=== PATIENT | female | born 1990 | race Caucasian/White ===

== ENCOUNTER 2019-01-04 19:32 | Emergency (ER) | payer SELFPAY ==
--- NOTE | 2019-01-04 20:18 | EDM.PDOC ---
ED HPI GENERAL MEDICAL PROBLEM - General Chief Complaint: Skin Complaint Stated Complaint: SKIN CROHNS Time Seen by Provider: 01/04/19 19:34 Source of Information: Reports: Patient History Limitations: Reports: No Limitations - History of Present Illness INITIAL COMMENTS - FREE TEXT/NARRATIVE: HISTORY AND PHYSICAL: History of present illness: Patient is a 28-year-old female who presents to the emergency room with concerns of undertreated Crohn's disease. She states that she has no health insurance and no money and therefore has not been taking her medications for her Crohn's disease. She does get skin lesions associated with her Crohn's disease and has noticed one to her right buttocks, she developed one of her usual sores. She states yesterday she did cut into it hoping it would alleviate some of the pressure and pain. Patient states that she gets these areas frequently. She states she usually pops them and then they resolve and feel much better. She states after popping this one seems to have gotten worse and she rates her pain a 10 out of 10. Patient denies fever, chills, chest pain, shortness of breath or cough. Denies any abdominal pain, nausea, vomiting, change in bowel habits, blood in stool/ urine, difficulties urinating/burning with urination, or any chance of . She has been eating and drinking appropriately. Patient does have a history of Crohn's but denies any other health history. Review of systems: As per history of present illness and below otherwise all systems reviewed and negative. Past medical history: As per history of present illness and as reviewed below otherwise noncontributory. Surgical history: As per history of present illness and as reviewed below otherwise noncontributory. Social history: See social history for further information Family history: As per history of present illness and as reviewed below otherwise noncontributory. Physical exam: General: Well-developed and well-nourished 28-year-old female. Alert and oriented. She is tearful with obtaining her health history and moderately anxious. Nontoxic appearing and in no acute distress. Patient appears older than stated age. HEENT: Atraumatic, normocephalic, pupils equal and reactive bilaterally, negative for conjunctival pallor or scleral icterus, mucous membranes moist, TMs normal bilaterally, throat clear, neck supple, nontender, trachea midline. No drooling or trismus noted. No meningeal signs. No hot potato voice noted. Lungs: Clear to auscultation, breath sounds equal bilaterally, chest nontender. Heart: S1S2, regular rate and rhythm without overt murmur Abdomen: Soft, nondistended, nontender. Negative for masses or hepatosplenomegaly. Negative for costovertebral tenderness. Pelvis: Stable nontender. Genitourinary: Deferred. Rectal: See skin. Deferred. Skin: Patient does have a 3 cm abscess that was priorly incised with a surrounding area of erythema of approximately 5-6 cm on the left buttocks. This area does not extend near the rectum. Patient has several other 2 cm lesions or erythema and prior scarring over her generalized buttocks and superior thigh. He do not appear to be any drainable abscesses. Extremities: Atraumatic, moves all per self, negative for cords or calf pain. Neurovascular unremarkable. Neuro: Awake, alert, oriented. Cranial nerves II through XII unremarkable. Cerebellum unremarkable. Motor and sensory unremarkable throughout. Exam nonfocal. Notes: On exam, patient does appear to have had a prior abscess in which she incision and drained on her own. There is a surrounding area of cellulitis. There are several other smaller areas on her buttocks of cellulitis without abscess. Patient does have a slightly elevated white count today. Patient was given Rocephin here in the ED. We discussed starting outpatient oral antibiotics vs admission, she would like to do the oral antibiotics. patient states she is unable to afford any medications at this time. We are able to give her the medication prescription through our [employer] machine, via [facility]. Encouraged her to follow up closely with a primary care provider as this does need to be followed closely and monitored. Signs and symptoms that would prompt her to return to the emergency room were reviewed and discussed. Vital signs have improved. She continues to appear nontoxic and in no acute distress. Supportive care measures were reviewed and discussed. Voices understanding and is agreeable to plan of care. Denies any further questions or concerns at this time. Diagnostics: CBC, CMP, Blood Culture x 2, UA, urine drug screen Therapeutics: IV fluid, Ativan, Rocephin Prescription: Bactrim DS BID x 10 days [place] (#10) Impression: Cellulitis, buttocks History of Crohns Disease with skin lesions UTI Plan: 1. Take medication as prescribed. Keep the skin clean and dry. Continue to monitor for signs of improvement. 2. You can alternate ibuprofen and Tylenol as needed for pain or discomfort as directed. 3. Follow up with her primary care provider in the next 1-2 days as discussed. 4. Return to the ED as needed and as discussed. Definitive disposition and diagnosis as appropriate pending reevaluation and review of above. buttocks Pain Score (Numeric/FACES): 2 - Related Data Allergies Allergy/AdvReac Type Severity Reaction Status Date / Time No Known Allergies Allergy Verified 01/04/19 20:06 Home Meds: Home Meds . [No Known Home Meds] 01/04/19 [History] ED ROS GENERAL - Review of Systems Review Of Systems: ROS reveals no pertinent complaints other than HPI. ED EXAM, SKIN/RASH Exam: See Below (See dictation) Course - Vital Signs Last Recorded V/S: Last Vital Signs Temp 98.5 F 01/04/19 22:15 Pulse 112 H 01/04/19 22:15 Resp 18 01/04/19 22:15 BP 106/70 01/04/19 22:15 Pulse Ox 97 01/04/19 22:15 - Orders/Labs/Meds Orders: Active Orders 24 hr Category Date Time Status Communication Order [RC] STAT Care 01/04/19 21:22 Active CULTURE BLOOD [BC] Stat Lab 01/04/19 20:47 Results CULTURE BLOOD [BC] Stat Lab 01/04/19 21:00 Received CULTURE URINE [RM] Stat Lab 01/04/19 22:15 Received Blood Culture x2 Reflex Set [OM.PC] Stat Oth 01/04/19 20:29 Ordered Labs: Laboratory Tests 01/04/19 01/04/19 01/04/19 Range/Units 20:20 20:20 22:15 WBC 15.40 H (4.0-11.0) K/uL RBC 4.68 (4.30-5.90) M/uL Hgb 12.8 (12.0-16.0) g/dL Hct 38.4 (36.0-46.0) % MCV 82.1 (80.0-98.0) fL MCH 27.4 (27.0-32.0) pg MCHC 33.3 (31.0-37.0) g/dL RDW Std Deviation 42.7 (28.0-62.0) fl RDW Coeff of Maninder 14 (11.0-15.0) % Plt Count 428 H (150-400) K/uL MPV 9.80 (7.40-12.00) fL Neut % (Auto) 70.2 (48.0-80.0) % Lymph % (Auto) 21.8 (16.0-40.0) % [place] % (Auto) 6.6 (0.0-15.0) % Eos % (Auto) 1.1 (0.0-7.0) % Baso % (Auto) 0.3 (0.0-1.5) % Neut # (Auto) 10.8 H (1.4-5.7) K/uL Lymph # (Auto) 3.4 H (0.6-2.4) K/uL [place] # (Auto) 1.0 H (0.0-0.8) K/uL Eos # (Auto) 0.2 (0.0-0.7) K/uL Baso # (Auto) 0.1 (0.0-0.1) K/uL Nucleated RBC % 0.0 /100WBC Nucleated RBCs # 0 K/uL Sodium 138 (136-145) mmol/L Potassium 3.8 (3.5-5.1) mmol/L Chloride 100 (98-107) mmol/L Carbon Dioxide 23.8 (21.0-32.0) mmol/L BUN 12 (7.0-18.0) mg/dL Creatinine 0.8 (0.6-1.0) mg/dL Est Cr Clr Drug Dosing 99.91 mL/min Estimated GFR (MDRD) > 60.0 ml/min Glucose 104 (74-106) mg/dL Calcium 9.4 (8.5-10.1) mg/dL Total Bilirubin 0.6 (0.2-1.0) mg/dL AST 15 (15-37) IU/L ALT 13 L (14-63) IU/L Alkaline Phosphatase 97 (46-116) U/L Total Protein 9.3 H (6.4-8.2) g/dL Albumin 3.3 L (3.4-5.0) g/dL Globulin 6.0 H (2.6-4.0) g/dL Albumin/Globulin Ratio 0.6 L (0.9-1.6) Urine Color YELLOW Urine Appearance SLT CLOUDY Urine pH 6.5 (5.0-8.0) Ur Specific [place] 1.020 (1.001-1.035) Urine Protein TRACE H (NEGATIVE) mg/dL Urine Glucose (UA) NEGATIVE (NEGATIVE) mg/dL Urine Ketones TRACE H (NEGATIVE) mg/dL Urine Occult Blood MODERATE H (NEGATIVE) Urine Nitrite NEGATIVE (NEGATIVE) Urine Bilirubin NEGATIVE (NEGATIVE) Urine Urobilinogen 0.2 (<2.0) EU/dL Ur Leukocyte Esterase SMALL H (NEGATIVE) Urine RBC 4-7 (0-2/HPF) Urine WBC 5-8 (0-5/HPF) Ur Epithelial Cells MODERATE (NONE-FEW) Urine Bacteria FEW (NEGATIVE) Hyaline Casts 0-1 (0-2/LPF) Urine Mucus MODERATE (NONE-MOD) Urine Opiates Screen (NEGATIVE) Ur Oxycodone Screen (NEGATIVE) Urine Methadone Screen (NEGATIVE) Ur Barbiturates Screen (NEGATIVE) Ur Phencyclidine Scrn (NEGATIVE) Ur Amphetamine Screen (NEGATIVE) U Methamphetamines Scrn (NEGATIVE) U Benzodiazepines Scrn (NEGATIVE) U Cocaine Metab Screen (NEGATIVE) U Marijuana (THC) Screen (NEGATIVE) 01/04/19 Range/Units 22:15 WBC (4.0-11.0) K/uL RBC (4.30-5.90) M/uL Hgb (12.0-16.0) g/dL Hct (36.0-46.0) % MCV (80.0-98.0) fL MCH (27.0-32.0) pg MCHC (31.0-37.0) g/dL RDW Std Deviation (28.0-62.0) fl RDW Coeff of Maninder (11.0-15.0) % Plt Count (150-400) K/uL MPV (7.40-12.00) fL Neut % (Auto) (48.0-80.0) % Lymph % (Auto) (16.0-40.0) % [place] % (Auto) (0.0-15.0) % Eos % (Auto) (0.0-7.0) % Baso % (Auto) (0.0-1.5) % Neut # (Auto) (1.4-5.7) K/uL Lymph # (Auto) (0.6-2.4) K/uL [place] # (Auto) (0.0-0.8) K/uL Eos # (Auto) (0.0-0.7) K/uL Baso # (Auto) (0.0-0.1) K/uL Nucleated RBC % /100WBC Nucleated RBCs # K/uL Sodium (136-145) mmol/L Potassium (3.5-5.1) mmol/L Chloride (98-107) mmol/L Carbon Dioxide (21.0-32.0) mmol/L BUN (7.0-18.0) mg/dL Creatinine (0.6-1.0) mg/dL Est Cr Clr Drug Dosing mL/min Estimated GFR (MDRD) ml/min Glucose (74-106) mg/dL Calcium (8.5-10.1) mg/dL Total Bilirubin (0.2-1.0) mg/dL AST (15-37) IU/L ALT (14-63) IU/L Alkaline Phosphatase (46-116) U/L Total Protein (6.4-8.2) g/dL Albumin (3.4-5.0) g/dL Globulin (2.6-4.0) g/dL Albumin/Globulin Ratio (0.9-1.6) Urine Color Urine Appearance Urine pH (5.0-8.0) Ur Specific [place] (1.001-1.035) Urine Protein (NEGATIVE) mg/dL Urine Glucose (UA) (NEGATIVE) mg/dL Urine Ketones (NEGATIVE) mg/dL Urine Occult Blood (NEGATIVE) Urine Nitrite (NEGATIVE) Urine Bilirubin (NEGATIVE) Urine Urobilinogen (<2.0) EU/dL Ur Leukocyte Esterase (NEGATIVE) Urine RBC (0-2/HPF) Urine WBC (0-5/HPF) Ur Epithelial Cells (NONE-FEW) Urine Bacteria (NEGATIVE) Hyaline Casts (0-2/LPF) Urine Mucus (NONE-MOD) Urine Opiates Screen NEGATIVE (NEGATIVE) Ur Oxycodone Screen NEGATIVE (NEGATIVE) Urine Methadone Screen NEGATIVE (NEGATIVE) Ur Barbiturates Screen NEGATIVE (NEGATIVE) Ur Phencyclidine Scrn NEGATIVE (NEGATIVE) Ur Amphetamine Screen NEGATIVE (NEGATIVE) U Methamphetamines Scrn NEGATIVE (NEGATIVE) U Benzodiazepines Scrn NEGATIVE (NEGATIVE) U Cocaine Metab Screen NEGATIVE (NEGATIVE) U Marijuana (THC) Screen NEGATIVE (NEGATIVE) Meds: Medications Discontinued Medications Generic Name Dose Route Start Last Admin Trade Name Tong PRN Reason Stop Dose Admin Acetaminophen 1,000 mg 01/04/19 20:29 01/04/19 20:52 Tylenol Extra Strength PO 01/04/19 20:30 1,000 mg ONETIME ONE Administration Sodium Chloride 1,000 mls @ 999 mls/hr 01/04/19 20:19 01/04/19 20:35 Normal Saline IV 01/04/19 21:19 999 mls/hr STAT ONE Administration Ceftriaxone Sodium/Dextrose 1 50 mls @ 100 mls/hr 01/04/19 21:09 01/04/19 21: 34 gm/ Premix IV 01/04/19 21:38 100 mls/hr ONETIME ONE Administration Lorazepam 1 mg 01/04/19 20:37 01/04/19 21:07 Ativan IVPUSH 01/04/19 20:38 1 mg ONETIME ONE Administration Departure - Departure Time of Disposition: 22:30 Disposition: Home, Self-Care 01 Clinical Impression: History of Crohn's disease Cellulitis Qualifiers: Site of cellulitis: buttock Qualified Code(s): L03.317 - Cellulitis of buttock UTI (urinary tract infection) Qualifiers: Urinary tract infection type: site unspecified Hematuria presence: without hematuria Qualified Code(s): N39.0 - Urinary tract infection, site not specified - Discharge Information Instructions: Cellulitis, Adult, [id number] Referrals: PCP,None [Primary Care Provider] - Forms: ED Department Discharge Additional Instructions: The following information is given to patients seen in the emergency department who are being discharged to home. This information is to outline your options for follow-up care. We provide all patients seen in our emergency department with a follow-up referral. The need for follow-up, as well as the timing and circumstances, are variable depending upon the specifics of your emergency department visit. If you don't have a primary care physician on staff, we will provide you with a referral. We always advise you to contact your personal physician following an emergency department visit to inform them of the circumstance of the visit and for follow-up with them and/or the need for any referrals to a consulting specialist. The emergency department will also refer you to a specialist when appropriate. This referral assures that you have the opportunity for follow-up care with a specialist. All of these measure are taken in an effort to provide you with optimal care, which includes your follow-up. Under all circumstances we always encourage you to contact your private physician who remains a resource for coordinating your care. When calling for follow-up care, please make the office aware that this follow-up is from your recent emergency room visit. If for any reason you are refused follow-up, please contact the [facility] Emergency Department at and asked to speak to the emergency department charge nurse. [facility] [address] [place] [id number] [facility] [address] [place] [id number] 1. Take medication as prescribed. Keep the skin clean and dry. Continue to monitor for signs of improvement. 2. You can alternate ibuprofen and Tylenol as needed for pain or discomfort as directed. 3. Follow up with her primary care provider in the next 1-2 days as discussed. 4. Return to the ED as needed and as discussed. - My Orders Last 24 Hours: My Active Orders 01/04/19 20:29 Blood Culture x2 Reflex Set [OM.PC] Stat 01/04/19 20:47 CULTURE BLOOD [BC] Stat 01/04/19 21:00 CULTURE BLOOD [BC] Stat 01/04/19 21:22 Communication Order [RC] STAT 01/04/19 22:15 CULTURE URINE [RM] Stat - Assessment/Plan Last 24 Hours: My Active Orders 01/04/19 20:29 Blood Culture x2 Reflex Set [OM.PC] Stat 01/04/19 20:47 CULTURE BLOOD [BC] Stat 01/04/19 21:00 CULTURE BLOOD [BC] Stat 01/04/19 21:22 Communication Order [RC] STAT 01/04/19 22:15 CULTURE URINE [RM] Stat
[2019-01-04] MEDS ORDERED: Sodium Chloride 0.9% 1,000 ML IV ONE (20:19)
[2019-01-04] MEDS ORDERED: Acetaminophen 500 MG Tab PO ONE (20:29)
[2019-01-04] MEDS ORDERED: LORazepam 2 MG/ML SDV IVPUSH ONE (20:37)
[2019-01-04 21:00] LABS: CHLORIDE,CL 100 mmol/L (98-107); SODIUM,NA 138 mmol/L (136-145)
[2019-01-04] MEDS ORDERED: cefTRIAXone 1 GM in Premix Bag 1 BAG IV ONE (21:09)
== END 2019-01-04 22:15 | disposition home or self-care (01) ==
LOC: MW.ED 19:32
DX: L03.317 Cellulitis of buttock (principal); N39.0 Urinary tract infection, site not specified; K50.90 Crohn's disease, unspecified, without complications
CPT/HCPCS: 80053; 80305; 81001; 85025; 87040; 87086; 96361; 96365; 96375; 99283; A9270; J0696; J2060; J7040

== ENCOUNTER 2019-01-09 15:21 | Emergency (ER) | payer SELFPAY ==
--- NOTE | 2019-01-09 15:44 | EDM.PDOC ---
ED HPI GENERAL MEDICAL PROBLEM - General Chief Complaint: Skin Complaint Stated Complaint: SKIN CHROME INFECTED Time Seen by Provider: 01/09/19 15:26 Source of Information: Reports: Patient History Limitations: Reports: No Limitations - History of Present Illness INITIAL COMMENTS - FREE TEXT/NARRATIVE: History of present illness: []Patient has a history of Crohn's disease with multiple skin abscesses. She was seen here 5 days ago after opening an abscess at home with his scalpel herself. She was put on Bactrim and [place]. Patient returns stating that they "hole is bigger". She denies any fevers, chills, vomiting or diarrhea. Patient is currently on Bactrim. Review of systems: As per history of present illness and below otherwise all systems reviewed and negative. Past medical history: As per history of present illness and as reviewed below otherwise noncontributory. Surgical history: As per history of present illness and as reviewed below otherwise noncontributory. Social history: No reported history of drug or alcohol abuse. Family history: As per history of present illness and as reviewed below otherwise noncontributory. Physical exam: General: Well developed, well nourished in NAD HEENT: Atraumatic, normocephalic, pupils reactive, negative for conjunctival pallor or scleral icterus, mucous membranes moist, throat clear, neck supple, nontender, trachea midline. Lungs: Clear to auscultation, breath sounds equal bilaterally, chest nontender. Heart: S1S2, regular, negative for clicks, rubs, or JVD. Abdomen: NABS, Soft, nondistended, nontender. Negative for masses or hepatosplenomegaly. Negative for costovertebral tenderness. Pelvis: Stable nontender. Genitourinary: Deferred. Rectal: Buttock with multiple scars diffusely there is a left buttock wound that is open with granulation tissue visible. There is minimal and mild erythema and no swelling. Extremities: Atraumatic, negative for cords or calf pain. Neurovascular unremarkable. Neuro: Awake, alert, oriented. Cranial nerves II through XII unremarkable. Cerebellum unremarkable. Motor and sensory unremarkable throughout. Exam nonfocal. Skin:warm and dry Diagnostics: None Therapeutics: Dressing changed ED Course: Unremarkable, patient was upset that the wound was still open and that she was unable to get into a doctor right away. For the . Impression: Multiple skin abscesses Prescriptions: None Plan: Follow-up with general surgery and/or primary care Definitive disposition and diagnosis as appropriate pending reevaluation and review of above. Buttock Pain Score (Numeric/FACES): 10 - Related Data Allergies Allergy/AdvReac Type Severity Reaction Status Date / Time No Known Allergies Allergy Verified 01/09/19 15:38 Home Meds: Home Meds Acetaminophen/HYDROcodone [[place] 325-5 MG] 1 tab PO Q6H 01/09/19 [History] Sulfamethoxazole/Trimethoprim [Sulfamethoxazole-Tmp Ds Tablet] 1 each PO BID 07/22 [History] Past Medical History Gastrointestinal History: Reports: Other (See Below) Other Gastrointestinal History: crohns Dermatologic History: Reports: Other (See Below) Other Dermatologic History: skins crohns - Infectious Disease History Infectious Disease History: Reports: MRSA - Past Surgical History GI Surgical History: Reports: None Dermatological Surgical History: Reports: Other (See Below) Social & Family History - Family History Family Medical History: Noncontributory - Caffeine Use Caffeine Use: Reports: Other Caffeine Use Comment: charmaine ED ROS GENERAL - Review of Systems Review Of Systems: ROS reveals no pertinent complaints other than HPI. ED EXAM, SKIN/RASH Exam: See Below (See history of present illness) Course - Vital Signs Last Recorded V/S: Last Vital Signs Temp 99.1 F 01/09/19 15:41 Pulse 92 01/09/19 15:41 Resp 16 01/09/19 15:41 BP 92/57 L 01/09/19 15:41 Pulse Ox 98 01/09/19 15:41 Departure - Departure Time of Disposition: 15:56 Disposition: Home, Self-Care 01 Condition: Good Clinical Impression: Encounter for medical screening examination, Wound check, abscess - Discharge Information *PRESCRIPTION DRUG MONITORING PROGRAM REVIEWED*: No *COPY OF PRESCRIPTION DRUG MONITORING REPORT IN PATIENT JACI: No Referrals: PCP,None [Primary Care Provider] - Forms: ED Department Discharge Additional Instructions: The following information is given to patients seen in the emergency department who are being discharged to home. This information is to outline your options for follow-up care. We provide all patients seen in our emergency department with a follow-up referral. The need for follow-up, as well as the timing and circumstances, are variable depending upon the specifics of your emergency department visit. If you don't have a primary care physician on staff, we will provide you with a referral. We always advise you to contact your personal physician following an emergency department visit to inform them of the circumstance of the visit and for follow-up with them and/or the need for any referrals to a consulting specialist. The emergency department will also refer you to a specialist when appropriate. This referral assures that you have the opportunity for follow-up care with a specialist. All of these measure are taken in an effort to provide you with optimal care, which includes your follow-up. Under all circumstances we always encourage you to contact your private physician who remains a resource for coordinating your care. When calling for follow-up care, please make the office aware that this follow-up is from your recent emergency room visit. If for any reason you are refused follow-up, please contact the [facility] Emergency Department at and asked to speak to the emergency department charge nurse. Keep wound clean, frequent sitz bath, follow-up with primary care and/or general surgery [facility] - General Surgery Professional Building [address] [place] [address], [address] [place] [address] [facility] [address] [place] [id number]
== END 2019-01-09 16:03 | disposition home or self-care (01) ==
LOC: MW.ED 15:21
DX: L02.31 Cutaneous abscess of buttock (principal)
CPT/HCPCS: 99282; 99283

== ENCOUNTER 2019-05-29 02:59 | Emergency (ER) | payer BC, OTHER ==
--- NOTE | 2019-05-29 03:06 | EDM.PDOC ---
<Perez Cannon J - Last Filed: 05/29/19 06:57> ED HPI GENERAL MEDICAL PROBLEM - General Stated Complaint: VOMITING, PASSING OUT, COLD, CLAMMY Time Seen by Provider: 05/29/19 03:01 - History of Present Illness INITIAL COMMENTS - FREE TEXT/NARRATIVE: HISTORY AND PHYSICAL: History of present illness: Patient 29-year-old female history Crohn's disease presents with a concern of nausea and vomiting/diarrhea she denies fever chills chest pain shortness breath or other concern is been no trauma she states her Crohn's disease has been very stable. Review of systems: As per history of present illness and below otherwise all systems reviewed and negative. Past medical history: As per history of present illness and as reviewed below otherwise noncontributory. Surgical history: As per history of present illness and as reviewed below otherwise noncontributory. Social history: No reported history of drug or alcohol abuse. Family history: As per history of present illness and as reviewed below otherwise noncontributory. Physical exam: HEENT: Atraumatic, normocephalic, pupils reactive, negative for conjunctival pallor or scleral icterus, mucous membranes dry, throat clear, neck supple, nontender, trachea midline. Lungs: Clear to auscultation, breath sounds equal bilaterally, chest nontender. Heart: S1S2, regular, negative for clicks, rubs, or JVD. Abdomen: Soft, nondistended, nontender. Negative for masses or hepatosplenomegaly. Negative for costovertebral tenderness. Pelvis: Stable nontender. Genitourinary: Deferred. Rectal: Deferred. Extremities: Atraumatic, negative for cords or calf pain. Neurovascular unremarkable. Neuro: Awake, alert, oriented. Cranial nerves II through XII unremarkable. Cerebellum unremarkable. Motor and sensory unremarkable throughout. Exam nonfocal. Diagnostics: CBC CMP lipase UA UDS acute abdominal series with chest x-ray Therapeutics: Saline 1 L bolus Zofran 4 mg IV Impression: #1 vomiting/diarrhea #2 history of Crohn's disease #3 dehydration Definitive disposition and diagnosis as appropriate pending reevaluation and review of above. Abdomen Pain Score (Numeric/FACES): 3 - Related Data Allergies Allergy/AdvReac Type Severity Reaction Status Date / Time aspertane Allergy Vomiting Uncoded 05/29/19 03:06 Home Meds: Home Meds Certolizumab Pegol [Cimzia] 1 injection INJECT ASDIRECTED 05/29/19 [History] Past Medical History - Past Health History Medical/Surgical History: Denies Medical/Surgical History Gastrointestinal History: Reports: Other (See Below) Other Gastrointestinal History: crohns Dermatologic History: Reports: Other (See Below) Other Dermatologic History: skins crohns - Infectious Disease History Infectious Disease History: Reports: MRSA - Past Surgical History GI Surgical History: Reports: None Dermatological Surgical History: Reports: Other (See Below) Social & Family History - Family History Family Medical History: Noncontributory - Caffeine Use Caffeine Use: Reports: Other Caffeine Use Comment: charmaine ED ROS GENERAL - Review of Systems Review Of Systems: ROS reveals no pertinent complaints other than HPI. ED EXAM, GENERAL - Physical Exam Exam: See Below (See dictation) Course - Vital Signs Last Recorded V/S: Last Vital Signs Temp 96 F 05/29/19 03:00 Pulse 93 05/29/19 03:00 Resp 18 05/29/19 03:00 BP 102/61 05/29/19 03:00 Pulse Ox 98 05/29/19 03:00 - Orders/Labs/Meds Orders: Active Orders 24 hr Category Date Time Status CULTURE STOOL + CAMPY+SHIGATOX [RM] Stat Lab 05/29/19 03:45 Results OVA & PARASITES BY IMMUNOASSAY [MREF] Stat Lab 05/29/19 03:45 Received Sodium Chloride 0.9% [Normal Saline] 1,000 ml Med 05/29/19 03:15 Active IV ASDIRECTED Medication Orders Sodium Chloride (Normal Saline) 1,000 mls @ 999 mls/hr IV ASDIRECTED PÉREZ Last Admin: 05/29/19 03:22 Dose: 999 mls/hr Labs: Laboratory Tests 05/29/19 05/29/19 05/29/19 Range/Units 03:23 03:23 03:42 WBC 16.49 H (4.0-11.0) K/uL RBC 5.30 (4.30-5.90) M/uL Hgb 15.3 (12.0-16.0) g/dL Hct 45.4 (36.0-46.0) % MCV 85.7 (80.0-98.0) fL MCH 28.9 (27.0-32.0) pg MCHC 33.7 (31.0-37.0) g/dL RDW Std Deviation 44.0 (28.0-62.0) fl RDW Coeff of Maninder 14 (11.0-15.0) % Plt Count 328 (150-400) K/uL MPV 10.60 (7.40-12.00) fL Neut % (Auto) 84.2 H (48.0-80.0) % Lymph % (Auto) 6.2 L (16.0-40.0) % [place] % (Auto) 9.2 (0.0-15.0) % Eos % (Auto) 0.2 (0.0-7.0) % Baso % (Auto) 0.2 (0.0-1.5) % Neut # (Auto) 13.9 H (1.4-5.7) K/uL Lymph # (Auto) 1.0 (0.6-2.4) K/uL [place] # (Auto) 1.5 H (0.0-0.8) K/uL Eos # (Auto) 0.0 (0.0-0.7) K/uL Baso # (Auto) 0.0 (0.0-0.1) K/uL Nucleated RBC % 0.0 /100WBC Nucleated RBCs # 0 K/uL Sodium 138 (136-145) mmol/L Potassium 3.8 (3.5-5.1) mmol/L Chloride 100 (98-107) mmol/L Carbon Dioxide 21.5 (21.0-32.0) mmol/L BUN 34 H (7.0-18.0) mg/dL Creatinine 1.6 H (0.6-1.0) mg/dL Est Cr Clr Drug Dosing 48.57 mL/min Estimated GFR (MDRD) 38.1 ml/min Glucose 202 H (74-106) mg/dL Calcium 9.9 (8.5-10.1) mg/dL Total Bilirubin 0.4 (0.2-1.0) mg/dL AST 18 (15-37) IU/L ALT 20 (14-63) IU/L Alkaline Phosphatase 86 (46-116) U/L Total Protein 9.9 H (6.4-8.2) g/dL Albumin 4.5 (3.4-5.0) g/dL Globulin 5.4 H (2.6-4.0) g/dL Albumin/Globulin Ratio 0.8 L (0.9-1.6) Lipase 88 (73-393) U/L Urine Color YELLOW Urine Appearance SLT CLOUDY Urine pH 5.5 (5.0-8.0) Ur Specific [place] >= 1.030 (1.001-1.035) Urine Protein TRACE H (NEGATIVE) mg/dL Urine Glucose (UA) NEGATIVE (NEGATIVE) mg/dL Urine Ketones TRACE H (NEGATIVE) mg/dL Urine Occult Blood NEGATIVE (NEGATIVE) Urine Nitrite NEGATIVE (NEGATIVE) Urine Bilirubin MODERATE H (NEGATIVE) Urine Ictotest NEGATIVE Urine Urobilinogen 0.2 (<2.0) EU/dL Ur Leukocyte Esterase SMALL H (NEGATIVE) Urine RBC 0-1 (0-2/HPF) Urine WBC 1-2 (0-5/HPF) Ur Epithelial Cells RARE (NONE-FEW) Urine Bacteria RARE (NEGATIVE) Urine HCG, Qual (NEGATIVE) Urine Opiates Screen (NEGATIVE) Ur Oxycodone Screen (NEGATIVE) Urine Methadone Screen (NEGATIVE) Ur Barbiturates Screen (NEGATIVE) Ur Phencyclidine Scrn (NEGATIVE) Ur Amphetamine Screen (NEGATIVE) U Methamphetamines Scrn (NEGATIVE) U Benzodiazepines Scrn (NEGATIVE) U Cocaine Metab Screen (NEGATIVE) U Marijuana (THC) Screen (NEGATIVE) 05/29/19 05/29/19 Range/Units 03:42 03:42 WBC (4.0-11.0) K/uL RBC (4.30-5.90) M/uL Hgb (12.0-16.0) g/dL Hct (36.0-46.0) % MCV (80.0-98.0) fL MCH (27.0-32.0) pg MCHC (31.0-37.0) g/dL RDW Std Deviation (28.0-62.0) fl RDW Coeff of Maninder (11.0-15.0) % Plt Count (150-400) K/uL MPV (7.40-12.00) fL Neut % (Auto) (48.0-80.0) % Lymph % (Auto) (16.0-40.0) % [place] % (Auto) (0.0-15.0) % Eos % (Auto) (0.0-7.0) % Baso % (Auto) (0.0-1.5) % Neut # (Auto) (1.4-5.7) K/uL Lymph # (Auto) (0.6-2.4) K/uL [place] # (Auto) (0.0-0.8) K/uL Eos # (Auto) (0.0-0.7) K/uL Baso # (Auto) (0.0-0.1) K/uL Nucleated RBC % /100WBC Nucleated RBCs # K/uL Sodium (136-145) mmol/L Potassium (3.5-5.1) mmol/L Chloride (98-107) mmol/L Carbon Dioxide (21.0-32.0) mmol/L BUN (7.0-18.0) mg/dL Creatinine (0.6-1.0) mg/dL Est Cr Clr Drug Dosing mL/min Estimated GFR (MDRD) ml/min Glucose (74-106) mg/dL Calcium (8.5-10.1) mg/dL Total Bilirubin (0.2-1.0) mg/dL AST (15-37) IU/L ALT (14-63) IU/L Alkaline Phosphatase (46-116) U/L Total Protein (6.4-8.2) g/dL Albumin (3.4-5.0) g/dL Globulin (2.6-4.0) g/dL Albumin/Globulin Ratio (0.9-1.6) Lipase (73-393) U/L Urine Color Urine Appearance Urine pH (5.0-8.0) Ur Specific [place] (1.001-1.035) Urine Protein (NEGATIVE) mg/dL Urine Glucose (UA) (NEGATIVE) mg/dL Urine Ketones (NEGATIVE) mg/dL Urine Occult Blood (NEGATIVE) Urine Nitrite (NEGATIVE) Urine Bilirubin (NEGATIVE) Urine Ictotest Urine Urobilinogen (<2.0) EU/dL Ur Leukocyte Esterase (NEGATIVE) Urine RBC (0-2/HPF) Urine WBC (0-5/HPF) Ur Epithelial Cells (NONE-FEW) Urine Bacteria (NEGATIVE) Urine HCG, Qual NEGATIVE (NEGATIVE) Urine Opiates Screen NEGATIVE (NEGATIVE) Ur Oxycodone Screen NEGATIVE (NEGATIVE) Urine Methadone Screen NEGATIVE (NEGATIVE) Ur Barbiturates Screen NEGATIVE (NEGATIVE) Ur Phencyclidine Scrn NEGATIVE (NEGATIVE) Ur Amphetamine Screen NEGATIVE (NEGATIVE) U Methamphetamines Scrn NEGATIVE (NEGATIVE) U Benzodiazepines Scrn NEGATIVE (NEGATIVE) U Cocaine Metab Screen NEGATIVE (NEGATIVE) U Marijuana (THC) Screen NEGATIVE (NEGATIVE) Meds: Medications Generic Name Dose Route Start Last Admin Trade Name Freq PRN Reason Stop Dose Admin Sodium Chloride 1,000 mls @ 999 mls/hr 05/29/19 03:15 05/29/19 03:22 Normal Saline IV 999 mls/hr ASDIRECTED PÉREZ Administration Discontinued Medications Generic Name Dose Route Start Last Admin Trade Name Freq PRN Reason Stop Dose Admin Ondansetron HCl 4 mg 05/29/19 03:08 05/29/19 03:24 Zofran IVPUSH 05/29/19 03:09 4 mg ONETIME ONE Administration Departure - Departure Disposition: Refer to Observation Clinical Impression: Dehydration - Discharge Information Referrals: Rosalina Hackett PA [Primary Care Provider] - <Rj Aleman - Last Filed: 05/29/19 07:51> ED ROS GENERAL - Review of Systems Review Of Systems: See Below ED EXAM, GENERAL - Physical Exam Exam: See Below Departure - Departure Time of Disposition: 07:51 Condition: Fair
[2019-05-29] MEDS ORDERED: Ondansetron 4 MG/2 ML SDV IVPUSH ONE (03:08)
[2019-05-29] MEDS ORDERED: Sodium Chloride 0.9% 1,000 ML IV SCH ×3 (03:15→10:45)
--- NOTE | 2019-05-29 06:03 | CR ---
INDICATION: Abdominal pain. COMPARISON: None. FINDINGS/IMPRESSION: Postoperative changes are noted over the left mid abdomen. There is massive gaseous distention of bowel loops throughout most of the abdomen, most likely representing portions of the colon, and there is a question of free air beneath the left diaphragm. CT of the abdomen and pelvis is recommended for further evaluation. Dictated by Campbell Lima MD @ 05/29/2019 6:01:38 AM Dictated by: Campbell Lima MD @ 05/29/2019 06:02:18 (Electronically Signed)
--- NOTE | 2019-05-29 07:17 | CT ---
Abdominal pain. TECHNIQUE: Noncontrast CT abdomen and pelvis coronal and sagittal reformat images obtained. FINDINGS: Heart size is normal. There is no pericardial effusion. There is no pleural effusion. 4 mm right middle lobe pulmonary nodule series 202 image 2. The unenhanced liver spleen pancreas appears unremarkable. Stomach is not distended and decompressed. Normal caliber abdominal aorta. Adrenal glands are within normal limits kidneys appear unremarkable without hydronephrosis or nephrolithiasis. Partial colon resection. Left upper quadrant sutures. Diffuse prominent and mildly dilated air and fluid-filled colon. There is no discrete transition point. No bowel wall thickening is seen. No inflammatory change. Small bowel is not dilated. Air in the urinary bladder. This could be correlated with prior instrumentation. The urinary bladder is otherwise unremarkable. No free air. No suspicious bony lesions IMPRESSION: 1. Diffuse prominent to mildly dilated air and fluid-filled colon without obstruction seen. Nondilated small bowel loops. No inflammatory change in the abdomen or pelvis. No free air. Findings could be related to ileus or pseudo-obstruction. Please note that all CT scans at this facility use dose modulation, iterative reconstruction, and/or weight-based dosing when appropriate to reduce radiation dose to as low as reasonably achievable. Dictated by Allyson Gutierrez MD @ May 29 2019 7:02AM Signed by Dr. Allyson Gutierrez @ May 29 2019 7:15AM
[2019-05-29] MEDS ORDERED: Sodium Chloride 0.9% 1,000 ML IV ONE (07:51)
[2019-05-29] MEDS ORDERED: oxyCODONE 5 MG Tab PO PRN ×2 (08:28→10:38)
[2019-05-29] MEDS ORDERED: Morphine 2 MG/ML Syringe IVPUSH PRN (08:28)
[2019-05-29] MEDS ORDERED: Ondansetron 4 MG/2 ML SDV IVPUSH PRN ×2 (08:28→10:38)
[2019-05-29] MEDS ORDERED: Enoxaparin 30 MG/0.3 ML Syringe SUBCUT SCH (08:30)
--- NOTE | 2019-05-29 08:36 | PCM.HP ---
H&P History of Present Illness - General Date of Service: 05/29/19 Admit Problem/Dx: Admission Diagnosis/Problem Admission Diagnosis/Problem Dehydration Source of Information: Patient History Limitations: Reports: No Limitations - History of Present Illness Initial Comments - Free Text/Narative: The patient is a 29-year-old lady who had presented to the emergency department with concern for abdominal bloating, vomiting, passing out and diarrhea. The patient has a history of Crohn's disease and she has a bad reaction whenever she has aspartame. The patient says that she feels like she was accidentally exposed after eating pizza. The patient says that all of this started suddenly yesterday. She has abdominal pain which does not radiate and is located generally in the upper quadrants of her abdomen. She is described the pain as cramping and throbbing. Patient says that she has had some fever and chills. She also has been having chronic diarrhea which she is described as non- stopping. The patient had been taking DMARD medication for the Crohn's disease. Onset of Symptoms: Reports: Sudden Duration of Symptoms: Reports: Hour(s): Location: Reports: Abdomen Quality: Reports: Ache, Same as Previous Episode, Throbbing Severity: Moderate Improves with: Reports: Medication Worsens with: Reports: Eating Associated Symptoms: Reports: No Other Symptoms Abdomen Pain Score (Numeric/FACES): 3 - Related Data Allergies/Adverse Reactions: Allergies Allergy/AdvReac Type Severity Reaction Status Date / Time aspertane Allergy Vomiting Uncoded 05/29/19 03:06 Home Medications: Home Meds Certolizumab Pegol [Cimzia] 1 injection INJECT ASDIRECTED 05/29/19 [History] Past Medical History - Past Health History Medical/Surgical History: Denies Medical/Surgical History HEENT History: Reports: None Cardiovascular History: Reports: None Respiratory History: Reports: None Gastrointestinal History: Reports: Other (See Below) Other Gastrointestinal History: crohns Genitourinary History: Reports: None [employer] History: Reports: Musculoskeletal History: Reports: None Neurological History: Reports: None Psychiatric History: Reports: Anxiety Endocrine/Metabolic History: Reports: None Hematologic History: Reports: None Immunologic History: Reports: None Oncologic (Cancer) History: Reports: None Dermatologic History: Reports: Other (See Below) Other Dermatologic History: skins crohns - Infectious Disease History Infectious Disease History: Reports: MRSA - Past Surgical History GI Surgical History: Reports: None Dermatological Surgical History: Reports: Other (See Below) Social & Family History - Family History Family Medical History: Noncontributory - Tobacco Use Smoking Status *Q: Never Smoker - Caffeine Use Caffeine Use: Reports: Other Caffeine Use Comment: zipfizz - Recreational Drug Use Recreational Drug Use: No - Living Situation & Occupation Living situation: Reports: , with Spouse, with Family Occupation: Unemployed H&P Review of Systems - Review of Systems: Review Of Systems: See Below General: Reports: Fever, Chills HEENT: Reports: No Symptoms Pulmonary: Reports: No Symptoms Cardiovascular: Reports: No Symptoms Gastrointestinal: Reports: Abdominal Pain, Diarrhea, Vomiting Genitourinary: Reports: No Symptoms Musculoskeletal: Reports: No Symptoms Skin: Reports: No Symptoms Psychiatric: Reports: No Symptoms Neurological: Reports: No Symptoms Hematologic/Lymphatic: Reports: No Symptoms Immunologic: Reports: No Symptoms Exam - Exam Exam: See Below - Vital Signs Vital Signs: Last Vital Signs Temp 35.5 C 05/29/19 03:00 Pulse 93 05/29/19 03:00 Resp 18 05/29/19 03:00 BP 102/61 05/29/19 03:00 Pulse Ox 98 05/29/19 03:00 Weight: 68.039 kg - Exam Quality Assessment: No: Supplemental Oxygen General: Alert, Oriented, Cooperative, Mild Distress HEENT: Conjunctiva Clear, EACs Clear, EOMI, Hearing Intact, Mucosa Moist & [place] , Nares Patent, Pupils Equal, PERRLA Neck: Supple, Trachea Midline Lungs: Clear to Auscultation, Normal Respiratory Effort Cardiovascular: Regular Rate, Regular Rhythm GI/Abdominal Exam: Normal Bowel Sounds, Soft, No Distention, Tender (epigastrium ). No: Guarding, Rigid, Rebound Back Exam: Normal Inspection, Full Range of Motion Extremities: Normal Inspection, Normal Range of Motion, No Pedal Edema Skin: Warm, Dry, Intact Neurological: Cranial Nerves Intact Neuro Extensive - Mental Status: Alert, Oriented x3 Psychiatric: Alert, Normal Affect, Normal Mood - Patient Data Lab Results Last 24 hrs: Laboratory Results - last 24 hr 05/29/19 05/29/19 05/29/19 Range/Units 03:23 03:23 03:42 WBC 16.49 H (4.0-11.0) K/uL RBC 5.30 (4.30-5.90) M/uL Hgb 15.3 (12.0-16.0) g/dL Hct 45.4 (36.0-46.0) % MCV 85.7 (80.0-98.0) fL MCH 28.9 (27.0-32.0) pg MCHC 33.7 (31.0-37.0) g/dL RDW Std Deviation 44.0 (28.0-62.0) fl RDW Coeff of Maninder 14 (11.0-15.0) % Plt Count 328 (150-400) K/uL MPV 10.60 (7.40-12.00) fL Neut % (Auto) 84.2 H (48.0-80.0) % Lymph % (Auto) 6.2 L (16.0-40.0) % [place] % (Auto) 9.2 (0.0-15.0) % Eos % (Auto) 0.2 (0.0-7.0) % Baso % (Auto) 0.2 (0.0-1.5) % Neut # (Auto) 13.9 H (1.4-5.7) K/uL Lymph # (Auto) 1.0 (0.6-2.4) K/uL [place] # (Auto) 1.5 H (0.0-0.8) K/uL Eos # (Auto) 0.0 (0.0-0.7) K/uL Baso # (Auto) 0.0 (0.0-0.1) K/uL Nucleated RBC % 0.0 /100WBC Nucleated RBCs # 0 K/uL Sodium 138 (136-145) mmol/L Potassium 3.8 (3.5-5.1) mmol/L Chloride 100 (98-107) mmol/L Carbon Dioxide 21.5 (21.0-32.0) mmol/L BUN 34 H (7.0-18.0) mg/dL Creatinine 1.6 H (0.6-1.0) mg/dL Est Cr Clr Drug Dosing 48.57 mL/min Estimated GFR (MDRD) 38.1 ml/min Glucose 202 H (74-106) mg/dL Calcium 9.9 (8.5-10.1) mg/dL Total Bilirubin 0.4 (0.2-1.0) mg/dL AST 18 (15-37) IU/L ALT 20 (14-63) IU/L Alkaline Phosphatase 86 (46-116) U/L Total Protein 9.9 H (6.4-8.2) g/dL Albumin 4.5 (3.4-5.0) g/dL Globulin 5.4 H (2.6-4.0) g/dL Albumin/Globulin Ratio 0.8 L (0.9-1.6) Lipase 88 (73-393) U/L Urine Color YELLOW Urine Appearance SLT CLOUDY Urine pH 5.5 (5.0-8.0) Ur Specific [place] >= 1.030 (1.001-1.035) Urine Protein TRACE H (NEGATIVE) mg/dL Urine Glucose (UA) NEGATIVE (NEGATIVE) mg/dL Urine Ketones TRACE H (NEGATIVE) mg/dL Urine Occult Blood NEGATIVE (NEGATIVE) Urine Nitrite NEGATIVE (NEGATIVE) Urine Bilirubin MODERATE H (NEGATIVE) Urine Ictotest NEGATIVE Urine Urobilinogen 0.2 (<2.0) EU/dL Ur Leukocyte Esterase SMALL H (NEGATIVE) Urine RBC 0-1 (0-2/HPF) Urine WBC 1-2 (0-5/HPF) Ur Epithelial Cells RARE (NONE-FEW) Urine Bacteria RARE (NEGATIVE) Urine HCG, Qual (NEGATIVE) Urine Opiates Screen (NEGATIVE) Ur Oxycodone Screen (NEGATIVE) Urine Methadone Screen (NEGATIVE) Ur Barbiturates Screen (NEGATIVE) Ur Phencyclidine Scrn (NEGATIVE) Ur Amphetamine Screen (NEGATIVE) U Methamphetamines Scrn (NEGATIVE) U Benzodiazepines Scrn (NEGATIVE) U Cocaine Metab Screen (NEGATIVE) U Marijuana (THC) Screen (NEGATIVE) 05/29/19 05/29/19 Range/Units 03:42 03:42 WBC (4.0-11.0) K/uL RBC (4.30-5.90) M/uL Hgb (12.0-16.0) g/dL Hct (36.0-46.0) % MCV (80.0-98.0) fL MCH (27.0-32.0) pg MCHC (31.0-37.0) g/dL RDW Std Deviation (28.0-62.0) fl RDW Coeff of Maninder (11.0-15.0) % Plt Count (150-400) K/uL MPV (7.40-12.00) fL Neut % (Auto) (48.0-80.0) % Lymph % (Auto) (16.0-40.0) % [place] % (Auto) (0.0-15.0) % Eos % (Auto) (0.0-7.0) % Baso % (Auto) (0.0-1.5) % Neut # (Auto) (1.4-5.7) K/uL Lymph # (Auto) (0.6-2.4) K/uL [place] # (Auto) (0.0-0.8) K/uL Eos # (Auto) (0.0-0.7) K/uL Baso # (Auto) (0.0-0.1) K/uL Nucleated RBC % /100WBC Nucleated RBCs # K/uL Sodium (136-145) mmol/L Potassium (3.5-5.1) mmol/L Chloride (98-107) mmol/L Carbon Dioxide (21.0-32.0) mmol/L BUN (7.0-18.0) mg/dL Creatinine (0.6-1.0) mg/dL Est Cr Clr Drug Dosing mL/min Estimated GFR (MDRD) ml/min Glucose (74-106) mg/dL Calcium (8.5-10.1) mg/dL Total Bilirubin (0.2-1.0) mg/dL AST (15-37) IU/L ALT (14-63) IU/L Alkaline Phosphatase (46-116) U/L Total Protein (6.4-8.2) g/dL Albumin (3.4-5.0) g/dL Globulin (2.6-4.0) g/dL Albumin/Globulin Ratio (0.9-1.6) Lipase (73-393) U/L Urine Color Urine Appearance Urine pH (5.0-8.0) Ur Specific [place] (1.001-1.035) Urine Protein (NEGATIVE) mg/dL Urine Glucose (UA) (NEGATIVE) mg/dL Urine Ketones (NEGATIVE) mg/dL Urine Occult Blood (NEGATIVE) Urine Nitrite (NEGATIVE) Urine Bilirubin (NEGATIVE) Urine Ictotest Urine Urobilinogen (<2.0) EU/dL Ur Leukocyte Esterase (NEGATIVE) Urine RBC (0-2/HPF) Urine WBC (0-5/HPF) Ur Epithelial Cells (NONE-FEW) Urine Bacteria (NEGATIVE) Urine HCG, Qual NEGATIVE (NEGATIVE) Urine Opiates Screen NEGATIVE (NEGATIVE) Ur Oxycodone Screen NEGATIVE (NEGATIVE) Urine Methadone Screen NEGATIVE (NEGATIVE) Ur Barbiturates Screen NEGATIVE (NEGATIVE) Ur Phencyclidine Scrn NEGATIVE (NEGATIVE) Ur Amphetamine Screen NEGATIVE (NEGATIVE) U Methamphetamines Scrn NEGATIVE (NEGATIVE) U Benzodiazepines Scrn NEGATIVE (NEGATIVE) U Cocaine Metab Screen NEGATIVE (NEGATIVE) U Marijuana (THC) Screen NEGATIVE (NEGATIVE) Result Diagrams: 05/29/19 03:23 05/29/19 03:23 Blaze Results Last 24 hrs: Microbiology 05/29/19 03:45 Clostridium difficile Toxin A & B - Final Stool / Feces Negative for C.Diff Toxin/AG REFERENCE RANGE: NEGATIVE 05/29/19 03:45 Campylobacter Antigen Assay - Final Stool / Feces NEGATIVE CAMPYLOBACTER AG REFERENCE RANGE: NEGATIVE - Problem List (1) Acute pseudo-obstruction of colon SNOMED Code(s): 94141466 ICD Code: K59.8 - OTHER SPECIFIED FUNCTIONAL INTESTINAL DISORDERS Status: Acute Priority: High (2) Diarrhea SNOMED Code(s): 28387255 ICD Code: R19.7 - DIARRHEA, UNSPECIFIED Status: Acute Priority: High Qualifiers: Diarrhea type: functional diarrhea Qualified Code(s): K59.1 - Functional diarrhea (3) Dehydration SNOMED Code(s): 62644979 ICD Code: E86.0 - DEHYDRATION Status: Acute Priority: High (4) History of Crohn's disease SNOMED Code(s): 484560643734464 ICD Code: Z87.19 - PERSONAL HISTORY OF OTHER DISEASES OF THE DIGESTIVE SYSTEM Status: Acute Priority: High Problem List Initiated/Reviewed/Updated: Yes Orders Last 24hrs: Active Orders 24 hr Category Date Time Status Admission Diagnosis [ADT] Stat ADT 05/29/19 07:51 Ordered Admission Status [Patient Status] [ADT] Stat ADT 05/29/19 07:52 Active Oxygen Therapy [RC] PRN Care 05/29/19 08:28 Ordered Up With Assistance [RC] ASDIRECTED Care 05/29/19 08:28 Ordered VTE/DVT Education [RC] PER UNIT ROUTINE Care 05/29/19 08:28 Ordered Vital Signs [RC] Q4H Care 05/29/19 08:28 Ordered Nothing per Oral Now Diet [DIET] Diet 05/29/19 Lunch Ordered CBC WITH AUTO DIFF [HEME] AM Lab 05/30/19 05:11 Ordered COMPREHENSIVE METABOLIC PN,CMP [CHEM] AM Lab 05/30/19 05:11 Ordered CULTURE STOOL + CAMPY+SHIGATOX [RM] Stat Lab 05/29/19 03:45 Results OVA & PARASITES BY IMMUNOASSAY [MREF] Stat Lab 05/29/19 03:45 Received Enoxaparin [Lovenox] Med 05/29/19 08:30 Ordered 30 mg SUBCUT Q24H Morphine Med 05/29/19 08:28 Ordered 2 mg IVPUSH Q2H PRN Ondansetron [Zofran] Med 05/29/19 08:28 Ordered 4 mg IVPUSH Q4H PRN Sodium Chloride 0.9% [Normal Saline] 1,000 ml Med 05/29/19 07:51 Active IV .Bolus Sodium Chloride 0.9% [Normal Saline] 1,000 ml Med 05/29/19 03:15 Active IV ASDIRECTED Sodium Chloride 0.9% [Normal Saline] 1,000 ml Med 05/29/19 08:30 Ordered IV ASDIRECTED oxyCODONE Med 05/29/19 08:28 Ordered 5 mg PO Q4H PRN Resuscitation Status Routine Resus Stat 05/29/19 08:28 Ordered Medication Orders Sodium Chloride (Normal Saline) 1,000 mls @ 999 mls/hr IV ASDIRECTED [facility] Last Admin: 05/29/19 03:22 Dose: 999 mls/hr Sodium Chloride (Normal Saline) 1,000 mls @ 999 mls/hr IV .Bolus ONE Stop: 05/29/19 08:51 Last Admin: 05/29/19 07:53 Dose: 999 mls/hr Assessment/Plan Comment:: The patient is an otherwise healthy 29-year-old lady who had been admitted out of concern for pseudoobstruction of her colon. The patient says that she has ceased types of symptoms whenever she consumes aspartame and this will exacerbate her Crohn's disease. The patient will be kept on IV fluids at 125 mL per hour. The patient will also be kept nothing by mouth for now. Uncontrolled patient's vomiting with Zofran at 4 mg IV every 4 hours as needed. She'll also also pending results of stool cultures as well as ova and parasites. We'll follow the patient with serial abdominal examinations and flat and upright plates x-rays if necessary. The patient has elevation of her creatinine at 1.6 mg a deciliter and she will be kept on DVT prophylaxis with the use of SCDs. The patient has been encouraged to ambulate. Repeat laboratory testings a been ordered. She would likely be appropriate for discharge in the morning.
[2019-05-29] MEDS ORDERED: Acetaminophen 325 MG Tab PO PRN (10:38)
[2019-05-29] MEDS ORDERED: Temazepam 15 MG Cap PO PRN (10:38)
== END 2019-05-29 09:07 | disposition left against medical advice (07) ==
LOC: MW.ED 02:59
DX: E86.0 Dehydration (principal); Z88.8 Allergy status to other drugs, medicaments and biological substances; Z79.899 Other long term (current) drug therapy; Z87.19 Personal history of other diseases of the digestive system
CPT/HCPCS: 36415; 74022; 74176; 80053; 80305; 81001; 81025; 83690; 85025; 87046; 87324; 87328; 87329; 87899; 96361; 96374; 99284; J2405; J7040

== ENCOUNTER 2019-08-29 10:54 | Emergency (ER) | payer BC ==
--- NOTE | 2019-08-29 11:16 | EDM.PDOC ---
ED HPI GENERAL MEDICAL PROBLEM - General Chief Complaint: ENT Problem Stated Complaint: SINUS INFECTION Time Seen by Provider: 08/29/19 11:05 - History of Present Illness INITIAL COMMENTS - FREE TEXT/NARRATIVE: HISTORY AND PHYSICAL: History of present illness: Patient's a 29-year-old female with history of colitis who presents with concern of sinus congestion green nasal discharge she denies fever chills nausea vomiting patient also complains bilateral ear pain Review of systems: As per history of present illness and below otherwise all systems reviewed and negative. Past medical history: As per history of present illness and as reviewed below otherwise noncontributory. Surgical history: As per history of present illness and as reviewed below otherwise noncontributory. Social history: No reported history of drug or alcohol abuse. Family history: As per history of present illness and as reviewed below otherwise noncontributory. Physical exam: HEENT: Atraumatic, normocephalic, pupils reactive, negative for conjunctival pallor or scleral icterus, mucous membranes moist, throat clear, neck supple, nontender, trachea midline. Tenderness to percussion over maxillary and frontal sinuses TMs are remarkable for scarring from likely chronic intermittent infections. Lungs: Clear to auscultation, breath sounds equal bilaterally, chest nontender. Heart: S1S2, regular, negative for clicks, rubs, or JVD. Abdomen: Soft, nondistended, nontender. Negative for masses or hepatosplenomegaly. Negative for costovertebral tenderness. Pelvis: Stable nontender. Genitourinary: Deferred. Rectal: Deferred. Extremities: Atraumatic, negative for cords or calf pain. Neurovascular unremarkable. Neuro: Awake, alert, oriented. Cranial nerves II through XII unremarkable. Cerebellum unremarkable. Motor and sensory unremarkable throughout. Exam nonfocal. Diagnostics: None Therapeutics: None Impression: #1 sinusitis #2 bilateral otalgia Definitive disposition and diagnosis as appropriate pending reevaluation and review of above. ears Pain Score (Numeric/FACES): 4 - Related Data Allergies Allergy/AdvReac Type Severity Reaction Status Date / Time aspertane Allergy Vomiting Uncoded 08/29/19 11:06 Home Meds: Home Meds ALPRAZolam [Alprazolam] 1 tab DAILY PRN 08/29/19 [History] Potassium Chloride 1 tab PO DAILY 08/29/19 [History] Ustekinumab [Stelara] 130 mg IV ASDIRECTED 08/29/19 [History] buPROPion HCl [Wellbutrin Xl] 1 tab PO DAILY 08/29/19 [History] predniSONE 40 mg PO ASDIRECTED 08/29/19 [History] Past Medical History - Past Health History Medical/Surgical History: Denies Medical/Surgical History HEENT History: Reports: None Cardiovascular History: Reports: None Respiratory History: Reports: None Gastrointestinal History: Reports: Other (See Below) Other Gastrointestinal History: crohns Genitourinary History: Reports: None [employer] ADMINISTRATOR History: Reports: Musculoskeletal History: Reports: None Neurological History: Reports: None Psychiatric History: Reports: Anxiety Endocrine/Metabolic History: Reports: None Hematologic History: Reports: None Immunologic History: Reports: None Oncologic (Cancer) History: Reports: None Dermatologic History: Reports: Other (See Below) Other Dermatologic History: skins crohns - Infectious Disease History Infectious Disease History: Reports: MRSA - Past Surgical History Head Surgeries/Procedures: Reports: None HEENT Surgical History: Reports: Myringotomy w Tube(s), Tonsillectomy GI Surgical History: Reports: Other (See Below) Other GI Surgeries/Procedures: bowel resection Dermatological Surgical History: Reports: Other (See Below) Social & Family History - Family History Family Medical History: Noncontributory - Tobacco Use Smoking Status *Q: Never Smoker - Caffeine Use Caffeine Use: Reports: Other Caffeine Use Comment: zipfizz - Recreational Drug Use Recreational Drug Use: No - Living Situation & Occupation Living situation: Reports: , with Spouse, with Family Occupation: Unemployed ED ROS GENERAL - Review of Systems Review Of Systems: ROS reveals no pertinent complaints other than HPI. ED EXAM, GENERAL - Physical Exam Exam: See Below (See dictation) Course - Vital Signs Last Recorded V/S: Last Vital Signs Temp 35.6 C 08/29/19 11:02 Pulse 111 H 08/29/19 11:02 Resp 20 08/29/19 11:02 BP 125/80 08/29/19 11:02 Pulse Ox 98 08/29/19 11:02 Departure - Departure Time of Disposition: 11:15 Disposition: Home, Self-Care 01 Condition: Good Clinical Impression: Sinusitis, Otalgia - Discharge Information Referrals: Rosalina Hackett PA [Primary Care Provider] - Additional Instructions: The following information is given to patients seen in the emergency department who are being discharged to home. This information is to outline your options for follow-up care. We provide all patients seen in our emergency department with a follow-up referral. The need for follow-up, as well as the timing and circumstances, are variable depending upon the specifics of your emergency department visit. If you don't have a primary care physician on staff, we will provide you with a referral. We always advise you to contact your personal physician following an emergency department visit to inform them of the circumstance of the visit and for follow-up with them and/or the need for any referrals to a consulting specialist. The emergency department will also refer you to a specialist when appropriate. This referral assures that you have the opportunity for followup care with a specialist. All of these measure are taken in an effort to provide you with optimal care, which includes your followup. Under all circumstances we always encourage you to contact your private physician who remains a resource for coordinating your care. When calling for followup care, please make the office aware that this follow-up is from your recent emergency room visit. If for any reason you are refused follow-up, please contact the [facility] emergency department at and asked to speak to the emergency department charge nurse. Augmentin as prescribed Motrin/Tylenol as directed continue current medications and follow private medical doctor as needed as discussed
== END 2019-08-29 11:23 | disposition home or self-care (01) ==
LOC: MW.ED 10:54
DX: J32.9 Chronic sinusitis, unspecified (principal); H92.03 Otalgia, bilateral; F41.9 Anxiety disorder, unspecified; Z91.018 Allergy to other foods; Z79.899 Other long term (current) drug therapy
CPT/HCPCS: 99282

== ENCOUNTER 2023-11-09 09:29 | Emergency (ER) | payer BC, OTHER ==
[2023-11-09] MEDS ORDERED: Sodium Chloride 0.9% 1,000 ML IV ONE ×2 (10:40→11:58)
[2023-11-09] MEDS ORDERED: Ondansetron 4 MG/2 ML SDV IVPUSH ONE ×2 (10:40→15:21)
[2023-11-09 11:27] LABS: HEMATOCRIT 51.9 % (37.0-47.0); HEMOGLOBIN 17.8 g/dL (12.0-16.0); MEAN CORPUSCULAR HGB CONC 34.3 g/dL (32.0-36.0); MEAN CORPUSCULAR VOLUME 87.4 fL (83.0-99.0); MEAN PLATELET VOLUME 10.2 fL (9.4-12.3); PLATELET COUNT,PLT 420 K/uL (150-400); RED BLOOD CELL COUNT 5.94 M/uL (4.10-5.30); WHITE BLOOD CELL COUNT,WBC 27.18 K/uL (3.9-11.3)
[2023-11-09 11:38] LABS: BAND ABSOLUTE MAN 3.26; BAND PERCENT MAN 12 %; LYMPHOCYTES ABSOLUTE MAN 1.09 K/uL (1.00-4.80); LYMPHOCYTES PERCENT MAN 4 % (24-44); MONOCYTES ABSOLUTE MAN 3.81 K/uL (0.00-0.80); MONOCYTES PERCENT MAN 14 % (0-8); SEG NEUTROPHILS ABSOLUTE MAN 19.03 K/uL (1.80-7.70); SEG NEUTROPHILS PERCENT MAN 70 % (41-71)
[2023-11-09 11:46] LABS: A/G RATIO 0.9 (0.9-1.6); ALBUMIN 4.9 g/dL (3.4-5.0); BILIRUBIN TOTAL 0.5 mg/dL (0.2-1.0); CALCIUM 10.1 mg/dL (8.5-10.1); CARBON DIOXIDE,CO2 20.9 mmol/L (21.0-32.0); CREATININE 1.5 mg/dL (0.6-1.0); EST CRCL DRUG DOSING (CG) 51.87 mL/min; POTASSIUM,K 3.7 mmol/L (3.5-5.1); PROTEIN TOTAL,TP 10.4 g/dL (6.4-8.2)
[2023-11-09] MEDS ORDERED: Ketorolac 30 MG/ML SDV IVPUSH ONE (11:58)
[2023-11-09] MEDS ORDERED: Iopamidol 755 MG/ML 500 ML Multipack Bottle IVPUSH STA (12:41)
[2023-11-09] MEDS ORDERED: metroNIDAZOLE/Normal Saline 500 MG in Premix Bag 1 BAG IV ONE (14:06)
[2023-11-09] MEDS ORDERED: Ciprofloxacin in D5W 400 MG in Premix Bag 1 BAG IV SCH ×2 (14:15)
[2023-11-09 14:57] LABS: APPEARANCE,URINE CLEAR; BILIRUBIN,URINE NEGATIVE (NEGATIVE); COLOR,URINE YELLOW; GLUCOSE,URINE NEGATIVE (NEGATIVE); KETONES,URINE NEGATIVE (NEGATIVE); LEUKOCYTE ESTERASE,URINE TRACE (NEGATIVE); NITRITE,URINE NEGATIVE (NEGATIVE); OCCULT BLOOD,URINE TRACE-INTACT (NEGATIVE); PROTEIN,URINE NEGATIVE (NEGATIVE); UROBILINOGEN,URINE 0.2 EU/dL (<2.0)
[2023-11-09 15:02] LABS: BACTERIA,URINE FEW (NEGATIVE); MUCUS,URINE LIGHT (NONE-MOD); SQUAMOUS EPITHELIAL CELLS,UR FEW
== END 2023-11-09 15:40 ==
LOC: MW.ED 09:29
DX: K50.919 Crohn's disease, unspecified, with unspecified complications (principal); Z91.02 Food additives allergy status
CPT/HCPCS: 36415; 74177; 80053; 81001; 83605; 83735; 85025; 87040; 87086; 96361; 96365; 96368; 96375; 96376; 99285; J0744; J1836; J1885; J2405; J7030; Q9967